=== PATIENT | female | born 1995 | race Caucasian/White ===

== ENCOUNTER 2022-11-12 15:27 | Emergency (ER) | payer OTHER ==
[2022-11-12 15:55] VITALS: RESP 16; TEMP 98.6; BMI 38.1
[2022-11-12] MEDS ORDERED: MAG HYDROX/AL HYDROX/SIMETH -MYLANTA- ORAL SUSPENSION PO ONE (16:03)
[2022-11-12] MEDS ORDERED: FAMOTIDINE 20 MG TABLET PO ONE (16:03)
[2022-11-12 16:13] LABS: HCG,QUALITATIVE URINE Negative
[2022-11-12] MEDS ORDERED: SODIUM CHLORIDE 0.9% 500 ML INFUS.BAG IV ONE (16:23)
[2022-11-12 16:33] LABS: HEMATOCRIT 38.9 % (32.4-45.2); HEMOGLOBIN 13.6 G/dL (10.7-15.3); MCH 30.9 pg (25.7-33.7); MCHC 35.1 g/dl (32.0-36.0); MEAN CELL VOLUME 87.9 fl (80-96); MEAN PLT VOLUME 8.2 fl (7.5-11.1); PLATELET COUNT 256.7 10^3/uL (134-434); RBC 4.42 10^6/uL (3.60-5.2); RDW 13.6 % (11.6-15.6); WHITE BLOOD COUNT 5.9 10^3/uL (4.0-10.8)
[2022-11-12] MEDS ORDERED: MAG HYDROX/AL HYDROX/SIMETH 30 ML UNIT-DOSE CUP ONE (16:43)
[2022-11-12] MEDS ORDERED: FAMOTIDINE 20 MG TABLET ONE (16:43)
[2022-11-12 16:50] LABS: ALBUMIN 4.5 g/dl (3.4-5.0); BILIRUBIN,TOTAL 0.7 mg/dl (0.2-1); CALCIUM 8.7 mg/dl (8.5-10); CREATININE 0.7 mg/dl (0.55-1.3); TOT PROT 7.7 g/dl (6.4-8.2)
[2022-11-12 17:24] LABS: PLATELET ESTIMATE ADEQUATE
[2022-11-12 18:27] VITALS: BP 127/73; PULSE 85
== END 2022-11-12 19:01 | disposition home or self-care (01) ==
LOC: FER 15:27
DX: R10.31 Right lower quadrant pain (principal)
CPT/HCPCS: 36415; 74177-TC; 80053; 81003; 81015; 84703; 85027; 99285-25; Q9967

== ENCOUNTER 2022-11-30 16:45 | Emergency (ER) | payer OTHER ==
[2022-11-30 17:12] VITALS: BP 142/77; PULSE 79; RESP 18; TEMP 98.3; BMI 38.7
[2022-11-30] MEDS ORDERED: SODIUM CHLORIDE 0.9% 500 ML INFUS.BAG IV ONE (17:12)
[2022-11-30] MEDS ORDERED: FAMOTIDINE 20 MG/50 ML IVPB 20 MG/50 ML MG IVPB ONE ×2 (17:12→17:25)
[2022-11-30] MEDS ORDERED: ONDANSETRON 4 MG/2 ML VIAL IVPUSH ONE ×2 (17:12→18:45)
[2022-11-30] MEDS ORDERED: ONDANSETRON 4 MG/2 ML VIAL ONE ×2 (17:25→18:51)
[2022-11-30 18:34] LABS: HEMATOCRIT 36.1 % (32.4-45.2); HEMOGLOBIN 12.7 G/dL (10.7-15.3); MCH 30.7 pg (25.7-33.7); MCHC 35.2 g/dl (32.0-36.0); MEAN CELL VOLUME 87.2 fl (80-96); MEAN PLT VOLUME 8.6 fl (7.5-11.1); PLATELET COUNT 316.3 10^3/uL (134-434); RBC 4.14 10^6/uL (3.60-5.2); RDW 13.3 % (11.6-15.6); WHITE BLOOD COUNT 8.9 10^3/uL (4.0-10.8)
[2022-11-30 18:45] LABS: ALBUMIN 4.6 g/dl (3.4-5.0); BILIRUBIN,TOTAL 0.6 mg/dl (0.2-1); CALCIUM 9.1 mg/dl (8.5-10); CREATININE 0.7 mg/dl (0.55-1.3); TOT PROT 7.9 g/dl (6.4-8.2)
[2022-11-30] MEDS ORDERED: METOCLOPRAMIDE HCL INJECTION 10 MG/2 ML VIAL IVPUSH ONE (18:45)
[2022-11-30] MEDS ORDERED: PANTOPRAZOLE SODIUM 40 MG VIAL IVPUSH ONE (18:47)
[2022-11-30] MEDS ORDERED: PANTOPRAZOLE SODIUM 40 MG VIAL ONE (18:51)
[2022-11-30 19:25] LABS: PLATELET ESTIMATE ADEQUATE
== END 2022-11-30 20:47 | disposition home or self-care (01) ==
LOC: FER 16:45
PROC: 3E033GC Introduction of Other Therapeutic Substance into Peripheral Vein, Percutaneous Approach (ICD-10-PCS; principal; 2022-11-30)
DX: R10.84 Generalized abdominal pain (principal); R11.10 Vomiting, unspecified
CPT/HCPCS: 36415; 71045-TC-FY; 76705-TC; 80053; 83690; 85027; 96365; 96375; 96376; 99285-25